=== PATIENT | female | born 2000 | race Caucasian/White ===

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

== ENCOUNTER 2021-05-11 19:55 | Outpatient (CLI) | payer BC, MEDICAID ==
[~2021-05-11] VITALS: Ht 162.6 cm; Wt 74.1 kg
--- NOTE | 2021-05-11 20:00 | NUR ---
1999- PT PRESENTS TO LDR COMPLAINING OF CONTRACTIONS AND SPOTTING. PT STATES SHE HAS PASSED A LARGE BLOOD CLOT AT HOME BUT IS CURRENTLY NOT WEARING A PAD. AMBULATORY TO ROOM LR5, CHANGED INTO GOWN. 2002- EFM X2 APPLIED. PT STATES SHE HAS BEEN HAVING SOME CONTRACTIONS AND BLEEDING. DENIES LEAKING FLUID AND STATES THAT SHE HAS BEEN FEELING THE BABY MOVE. PLAN OF CARE FOR LABOR CHECK DISCUSSED AND QUESTIONS ANSWERED. 2019- SVE BY DONOVAN GONZALEZ WITH NO BLOOD NOTED ON GLOVE. NURSING ADMISSION HISTORY AND ASSESSMENTS COMPLETE. ORAL HYDRATION PROVIDED. 2129- SVE BY DONOVAN GONZALEZ UNCHANGED. 2149- PT OFF MONITORS. UP TO BATHROOM. 2151- DR ROLES CALLED CHARTED. ORDER FOR DISMISSAL. 2204- DISMISSAL INSTRUCTIONS GIVEN AND PT VERBALIZES UNDERSTANDING. DISMISSED TO HOME AMBULATORY ACCOMPANIED BY SELF.
[2021-05-11 20:30] VITALS: BP 137/74; PULSE 97
[2021-05-11] MEDS ORDERED: LEVEMIR100 U/ML SQ (20:35)
[2021-05-11] MEDS ORDERED: HUMALOG100 U/ML SQ (20:36)
[2021-05-11] MEDS ORDERED: PRENATAL VITAMI1 TA3 PO (20:37)
== END 2021-05-11 22:05 | disposition home or self-care (01) ==
LOC: LDR 19:55 → LDRO 19:55 → LDR 22:05
DX: O24.013 Pre-existing type 1 diabetes mellitus, in pregnancy, third trimester (principal); O62.9 Abnormality of forces of labor, unspecified; E10.9 Type 1 diabetes mellitus without complications; Z3A.36 36 weeks gestation of pregnancy
CPT/HCPCS: OP

== ENCOUNTER 2022-08-03 03:58 | Emergency (ER) | payer BC, MEDICAID ==
[~2022-08-03] VITALS: Ht 162.6 cm; Wt 62.7 kg
[~2022-08-03 03:58] MED LIST: HUMALOG100 U/ML SQ; LEVEMIR100 U/ML SQ; PRENATAL VITAMI1 TA3 PO
[2022-08-03 04:02] VITALS: BP 133/86; TEMP 97.1
[2022-08-03] MEDS ORDERED: CEPHALEXIN500 M1 PO (04:15)
[2022-08-03 04:25] VITALS: PULSE 94
== END 2022-08-03 04:25 | disposition home or self-care (01) ==
LOC: COL.ER 03:58
DX: R05.9 Cough, unspecified (principal)